=== PATIENT | female | born 1950 | race Caucasian/White ===

== ENCOUNTER 2017-10-13 18:57 | Observation (INO) | payer MEDICARE ==
[~2017-10-13] VITALS: Ht 165.1 cm; Wt 77.3 kg
[2017-10-13 19:00] VITALS: BP 121/61; PULSE 113; RESP 20; TEMP 98.8; O2SAT 92
[2017-10-13] MEDS ORDERED: SODIUM CHLORIDE 0.9% FLUSH 10 ML FLUSH IV FLUSH PRN ×2 (19:30→21:45)
[2017-10-13] MEDS ORDERED: SODIUM CHLORID 0.9% 500 ML INJ 500 ML IV ONE (19:30)
--- NOTE | 2017-10-13 19:35 | PD ---
HPI Chief Complaint: Dizziness Time Seen by Provider: 19:19 Travel History International Travel<30 days: No Contact w/Intl Traveler<30days: No Traveled to known affect area: No History of Present Illness HPI The patient is a 66 year old female who presents to the [facility] emergency department with a history of reportedly having onset of dizziness, lightheaded sensation while I will get a dinner this evening. The patient reports that she could not do anything including talk or stand up. She just had to sit down. The patient was pale-appearing. Ambulance services were called. The patient was noted to have a sinus tachycardia, blood sugar 105. The patient was transported to this facility for evaluation and treatment. The patient on examination is oriented to person, place, however not time. She is oriented to situation and reports that she had a similar episode of what she describes as vertigo a couple months ago. She did describe this to her primary care physician, however no other workup was done. The patient is visiting from [place]. She arrived by plane 3 days ago. She denies drinking any alcohol. The patient arrives slightly tremulous. Otherwise on review of systems, the patient denies having any recent fevers or chills, cough or congestion,neck pain , chest pain, shortness of breath, abdominal pain, vomiting, diarrhea, urinary symptoms, double vision or blurry vision, one-sided weakness, slurred speech, facial droop, or one-sided weakness. The patient reports having generalized weakness this afternoon. [facility] Past Medical History Narrative Medical The patient's past medical history is significant for diabetes mellitus, hypertension, hyperlipidemia. The patient's daughter called in to provide additional history. She reports that she is a nurse. She reports that the patient has a history of depression and anxiety. The patient underwent shock therapy 2 years ago. The patient has had a mild tremor since then. The patient has also had a decline in her mentation since then according to her daughter. The patient has had multiple suicide attempts in the past. The patient has overdosed in the past on Klonopin as well as oxycodone. The patient's monitors her medication intake, however the patient's has other medical problems including blindness and severe COPD on nasal cannula oxygen continuously. The patient's daughter reports that he is traveling with his , however as he is blind he has not been able to travel to the emergency department. He did call the patient's daughter which is how she contacted us. This daughter is Sue. High Cholesterol: Yes Diabetes: Yes Patient Takes Glucophage: No (PRASHANT) Hypertension: Yes Tetanus Vaccination: > 5 Years Past Surgical History Narrative Surgical The patient's past surgical history is significant for bilateral knee replacements, cervical fusion, hysterectomy. Joint Replacement: Yes (BILATER KNEE REPLACEMENT ) Social History Alcohol Use: No (Quit in 1993) Tobacco Use: No Substance Use: No Allergies-Medications (Allergen,Severity, Reaction): Coded Allergies: No Known Allergies (Unverified , 10/13/17) Reported Meds & Prescriptions Reported Meds & Active Scripts Active Active Prescriptions or Reported Medications Unobtainable Review of Systems Except as stated in HPI: all other systems reviewed are Neg General / Constitutional: No: Fever Eyes: No: Visual changes HENT: No: Headaches Cardiovascular: No: Chest Pain or Discomfort Respiratory: No: Shortness of Breath Gastrointestinal: No: Nausea, Vomiting, Diarrhea, Abdominal Pain Genitourinary: No: Dysuria Musculoskeletal: No: Pain Skin: No Rash Neurologic: Positive: Weakness (Generalized weak), Dizziness, Change in Mentation, No: Syncope, Slurred Speech, Sensory Disturbance Psychiatric: No: Depression Endocrine: No: Polydipsia Hematologic/Lymphatic: No: Easy Bruising Physical Exam Narrative General: The patient is a well-developed well-nourished female in no acute distress. Head and Neck exam: Head is normocephalic atraumatic. Eyes: EOMI, pupils are equal round and reactive to light. Nose: Midline septum with pink mucous membranes Mouth: Dentition unremarkable. Moist mucus membranes. Posterior oropharynx is not erythematous. No tonsillar hypertrophy. Uvula midline. Airway patent. Neck: No palpable lymphadenopathy. No nuchal rigidity. No thyromegaly. Cardiovascular: Sinus tachycardia in the 1 teens without murmurs, gallops, or rubs. No pulse deficit to the extremities on simultaneous auscultation and palpation of her radial artery. Lungs: Clear to auscultation bilaterally. No wheezes, rhonchi, or rales. Abdomen: Soft, without tenderness to palpation in all 4 quadrants of the abdomen. No guarding, rebound, or rigidity. Normal bowel sounds are audible. No tenderness on palpation of McBurney's point. Negative Zamarripa sign. Extremities: No clubbing or cyanosis. The patient has trace to 1+ pitting edema bilateral lower extremities. 2+ pulses in all 4 extremities. No calf tenderness on palpation. Back: No costovertebral angle tenderness to palpation. Neurologic Exam: Cranial nerves 2-12 were intact on exam. Strength is 5/5 in all 4 extremities. No sensory deficits noted. Slightly tremulous on examination. The patient is oriented to person, place, however when asked the year she reports that it is 2007 and the month is October. She reports that she is in her 50s, however she is 66. The patient is aware that Suhas Sibley is president. Skin Exam: No rash noted. Intact skin that is warm and dry. Data Data Last Documented VS Vital Signs Date Time Temp Pulse Resp B/P (MAP) Pulse Ox O2 Delivery O2 Flow Rate FiO2 10/13/17 19:00 98.8 113 20 121/61 (81) 92 Orders Orders Electrocardiogram (10/13/17 19:19) Ammonia (10/13/17 19:19) Complete Blood Count With Diff (10/13/17 19:19) Comprehensive Metabolic Panel (10/13/17 19:19) Creatine Kinase (Cpk) (10/13/17 19:19) Prothrombin Time / Inr (Pt) (10/13/17 19:19) Act Partial Throm Time (Ptt) (10/13/17 19:19) Troponin I (10/13/17 19:19) Thyroid Stimulating Hormone (10/13/17 19:19) Urinalysis - C+S If Indicated (10/13/17 19:19) Chest, Single Ap (10/13/17 19:19) Ct Brain W/O Iv Contrast(Rout) (10/13/17 19:19) Blood Glucose (10/13/17 19:19) Ecg Monitoring (10/13/17 19:19) Iv Access Insert/Monitor (10/13/17 19:19) Oximetry (10/13/17 19:19) Sodium Chloride 0.9% Flush (Ns Flush) (10/13/17 19:30) Drug Screen, Random Urine (10/13/17 19:19) Alcohol (Ethanol) (10/13/17 19:19) Sodium Chlorid 0.9% 500 Ml Inj (Ns 500 M (10/13/17 19:30) Ckmb (Isoenzyme) Profile (10/13/17 19:19) B-Type Natriuretic Peptide (10/13/17 19:19) C-Reactive Protein (Crp) (10/13/17 19:19) Lipase (10/13/17 19:19) Magnesium (Mg) (10/13/17 19:19) Lactic Acid Sepsis Protocol (10/13/17 19:19) Orthostatic Vital Signs (10/13/17 19:23) CKMB (10/13/17 19:20) CKMB% (10/13/17 19:20) Salicylates (Aspirin) (10/13/17 20:38) Tylenol (Acetaminophen) (10/13/17 20:38) Admit Order (Ed Use Only) (10/13/17 21:27) Labs Laboratory Tests Test 10/13/17 19:20 10/13/17 19:40 White Blood Count 10.6 TH/MM3 Red Blood Count 4.42 MIL/MM3 Hemoglobin 13.3 GM/DL Hematocrit 38.9 % Mean Corpuscular Volume 88.0 FL Mean Corpuscular Hemoglobin 30.2 PG Mean Corpuscular Hemoglobin Concent 34.3 % Red Cell Distribution Width 13.4 % Platelet Count 340 TH/MM3 Mean Platelet Volume 8.3 FL Neutrophils (%) (Auto) 60.8 % Lymphocytes (%) (Auto) 28.3 % Monocytes (%) (Auto) 8.3 % Eosinophils (%) (Auto) 1.9 % Basophils (%) (Auto) 0.7 % Neutrophils # (Auto) 6.5 TH/MM3 Lymphocytes # (Auto) 3.0 TH/MM3 Monocytes # (Auto) 0.9 TH/MM3 Eosinophils # (Auto) 0.2 TH/MM3 Basophils # (Auto) 0.1 TH/MM3 CBC Comment DIFF FINAL Differential Comment Prothrombin Time 10.7 SEC Prothromb Time International Ratio 1.1 RATIO Activated Partial Thromboplast Time 22.4 SEC Blood Urea Nitrogen 18 MG/DL Creatinine 0.90 MG/DL Random Glucose 110 MG/DL Total Protein 6.8 GM/DL Albumin 4.4 GM/DL Calcium Level 10.4 MG/DL Magnesium Level 1.8 MG/DL Alkaline Phosphatase 41 U/L Aspartate Amino Transf (AST/SGOT) 21 U/L Alanine Aminotransferase (ALT/SGPT) 21 U/L Total Bilirubin 0.3 MG/DL Sodium Level 136 MEQ/L Potassium Level 3.2 MEQ/L Chloride Level 100 MEQ/L Carbon Dioxide Level 27.2 MEQ/L Anion Gap 9 MEQ/L Estimat Glomerular Filtration Rate 62 ML/MIN Ammonia 19 MCMOL/L Total Creatine Kinase 181 U/L Creatine Kinase MB 0.8 NG/ML Troponin I LESS THAN 0.02 NG/ML C-Reactive Protein LESS THAN 0.29 MG/DL B-Type Natriuretic Peptide 12 PG/ML Lipase 183 U/L Thyroid Stimulating Hormone 3rd Gen 1.250 uIU/ML Salicylates Level LESS THAN 1.7 MG/DL Acetaminophen Level LESS THAN 2.0 MCG/ML Ethyl Alcohol Level LESS THAN 3 MG/DL Lactic Acid Level 1.4 mmol/L MDM Medical Decision Making Medical Screen Exam Complete: Yes Emergency Medical Condition: Yes Medical Record Reviewed: Yes Differential Diagnosis Hepatic encephalopathy, versus intracranial mass, versus infectious process such as urinary tract infection, versus pneumonia, versus alcohol intoxication, versus withdrawal syndrome Narrative Course During the course of the patient's emergency department visit, the patient's history, examination, and differential diagnosis were reviewed with the patient. The patient was placed on a hospital monitor with oximetry and frequent blood pressure monitoring. The patient had IV access obtained and blood work sent for analysis. The patient had an EKG done on arrival that shows a sinus tachycardia rate of 115, incomplete right bundle branch block, QRS duration is 94 ms, QTc is [address] segment elevation. The patient was initially provided normal saline at 500 mL bolus. The patient's laboratory studies were reviewed and remarkable for a white count of 10.6, hemoglobin 13.3, platelets 340 with monocytes 8.3, CMP is remarkable for potassium of 3.2, glucose 110, calcium 10.4, alk phos 41, cardiac enzymes within normal limits, C-reactive protein less than 0.29, lipase 183, TSH 1.25, BNP is 12, ammonia level 19, lactic acid 1.4, PT 10.7, PTT 22.4, alcohol level less than 3, acetaminophen less than 2, salicylate less than 1.7. Radiology studies were reviewed and remarkable for a chest x-ray that shows cardiomegaly, trace atelectasis, no other acute abnormality. CT scan of the brain shows no acute abnormality. The patient will be admitted to the hospital for continued observation regarding altered mentation. The patient's results were discussed with the patient, including the plan of care. I explained that further testing and/ or monitoring is indicated based on the patient's history, examination, and/ or laboratory findings. Therefore, I recommended admission for additional evaluation. The patient expressed understanding and was agreeable with this plan. The patient was admitted to the hospital in stable condition and sent to a bed under the care of the [facility] service. Sepsis Criteria SIRS Criteria (2 or more): Heart rate over 90 Physician Communication Physician Communication The patient's case including history, pertinent physical examination findings, and laboratory studies were discussed with Dr. Brito. It was agreed that the patient would be admitted to the [facility] service. Diagnosis Primary Impression: Altered mental status Qualified Codes: R41.0 - Disorientation, unspecified Admitting Information Admitting Physician Requests: Observation Scripts Unable to Obtain Active Prescriptions or Reported Meds Kiana Adhikari MD Oct 13, 2017 19:35
--- NOTE | 2017-10-13 19:40 | RADRPT ---
EXAM DATE/TIME: 10/13/2017 19:31 [facility] COMPARISON: No previous studies available for comparison. INDICATIONS : Dizziness. RADIATION DOSE: 44.32 CTDIvol (mGy) MEDICAL HISTORY : Hypertension. Diabetes mellitus type 2. SURGICAL HISTORY : None. ENCOUNTER: Initial ACUITY: 1 day PAIN SCALE: 0/10 LOCATION: cranial TECHNIQUE: Multiple contiguous axial images were obtained of the head. Using automated exposure control and adj ustment of the mA and/or kV according to patient size, radiation dose was kept as low as reasonably a chievable to obtain optimal diagnostic quality images. DICOM format image data is available electro nically for review and comparison. FINDINGS: CEREBRUM: The ventricles are normal for age. No evidence of midline shift, mass lesion, hemorrhage or acute in farction. No extra-axial fluid collections are seen. POSTERIOR FOSSA: The cerebellum and brainstem are intact. The 4th ventricle is midline. The cerebellopontine angle i s unremarkable. EXTRACRANIAL: The visualized portion of the orbits is intact. SKULL: The calvaria is intact. No evidence of skull fracture. CONCLUSION: 1. No acute intracranial abnormalities. Trace fluid in the right maxillary sinus and sphenoid sinus. Harry Diggs MD on October 13, 2017 at 19:36 Board Certified Radiologist. This report was verified electronically.
--- NOTE | 2017-10-13 19:47 | RADRPT ---
EXAM DATE/TIME: 10/13/2017 19:36 [facility] COMPARISON: No previous studies available for comparison. INDICATIONS : Short of breath. AMS. MEDICAL HISTORY : None. SURGICAL HISTORY : None. ENCOUNTER: Initial ACUITY: 1 day PAIN SCORE: 0/10 LOCATION: Bilateral chest FINDINGS: A single view of the chest demonstrates postoperative right shoulder joint replacement and fusion low er cervical spine. Heart size is enlarged. Mild basilar atelectasis. No effusion. No pneumothorax. CONCLUSION: 1. Cardiomegaly with mild basilar atelectasis. No significant effusion. Harry Diggs MD on October 13, 2017 at 19:45 Board Certified Radiologist. This report was verified electronically.
[2017-10-13 19:52] LABS: AUTOMATED NEUTROPHIL # 6.5 TH/MM3 (1.8-7.7); BASOPHIL # 0.1 TH/MM3 (0-0.2); BASOPHIL % 0.7 % (0.0-2.0); EOSINOPHIL # 0.2 TH/MM3 (0-0.4); EOSINOPHIL % 1.9 % (0.0-4.0); HEMATOCRIT 38.9 % (35.0-46.0); HEMOGLOBIN 13.3 GM/DL (11.6-15.3); LYMPH % 28.3 % (9.0-44.0); MEAN CORPUSCULAR HEMOGLOBIN 30.2 PG (27.0-34.0); MEAN CORPUSCULAR HGB CONC 34.3 % (32.0-36.0); MEAN PLATELET VOLUME 8.3 FL (7.0-11.0); MONO % 8.3 % (0.0-8.0); MONOCYTE # 0.9 TH/MM3 (0-0.9); NEUT % 60.8 % (16.0-70.0); PLATELET COUNT 340 TH/MM3 (150-450); RED BLOOD COUNT 4.42 MIL/MM3 (4.00-5.30); RED CELL DISTRIBUTION WIDTH 13.4 % (11.6-17.2); WHITE BLOOD COUNT 10.6 TH/MM3 (4.0-11.0)
[2017-10-13 20:05] LABS: ALT (GPT) 21 U/L (10-53)
[2017-10-13 20:13] LABS: ALKALINE PHOSPHATASE 41 U/L (45-117); C-REACTIVE PROTEIN LESS THAN 0.29 MG/DL (0.00-0.30); INTERNATIONAL NORMALIZED RATIO 1.1 RATIO; PROTHROMBIN TIME - PATIENT 10.7 SEC (9.8-11.6); TOTAL BILIRUBIN ADULT 0.3 MG/DL (0.2-1.0); TOTAL PROTEIN 6.8 GM/DL (6.4-8.2); TROPONIN I LESS THAN 0.02 NG/ML (0.02-0.05)
[2017-10-13 20:15] LABS: ALBUMIN 4.4 GM/DL (3.4-5.0); AST (GOT) 21 U/L (15-37); BICARBONATE 27.2 MEQ/L (21.0-32.0); BLOOD UREA NITROGEN 18 MG/DL (7-18); CALCIUM 10.4 MG/DL (8.5-10.1); CHLORIDE 100 MEQ/L (98-107); GLOMERULAR FILTRATION RATE 62 ML/MIN (>89); GLUCOSE,RANDOM 110 MG/DL (74-106); MAGNESIUM 1.8 MG/DL (1.5-2.5); SODIUM (NA) 136 MEQ/L (136-145)
[2017-10-13] MEDS ORDERED: SODIUM CHLOR 0.9% 1000 ML INJ 1,000 ML IV SCH (21:41)
--- NOTE | 2017-10-13 21:43 | HHI.HP ---
[facility] No Primary Care Physician Admission Diagnosis AMS Diagnoses: (1) Encephalopathy Diagnosis: Principal (2) Dizziness Diagnosis: Principal (3) Hypokalemia Diagnosis: Principal (4) Dehydration Diagnosis: Principal Travel History International Travel<30 Days: No Contact w/Intl Traveler <30 Da: No Traveled to Known Affected Are: No History of Present Illness This is a 66-year-old female with PMH of HTN, Hyperlipidemia and DM brought to the ER by EMS secondary to dizziness/lightheadedness w/ AMS. Pt visiting from [place] with , states she went out to clam picker dinner and had acute onset of dizziness/lightheadedness and had to sit down on curb. Bystanders called EMS. Denies fall or LOC. States felt legs turn to "Jell-o". On arrival, pt noted to be slightly confused, oriented to person, place but not time. ER physician spoke w/ pt's Daughter in [place] who states pt takes Oxycodone for chronic pain and thinks she may have taken additional doses of pain medication. BP 121/61, HR 113, O2 sat 92% on RA, Afebrile. CBC unremarkable. K+ 3.2. GFR 62. Lactic Acid normal. Calcium 10.4. Troponin negative. INR 1.1. Alcohol negative. Tylenol and salicylate negative. UA and Urine Drug Screen pending. CXR with no acute findings. CT Head negative. Review of Systems Except as stated in HPI: all other systems reviewed are Neg ROS: 14 point review of systems otherwise negative. Past Family Social History Past Medical History PMH: HTN, Hyperlipidemia and DM Past Surgical History PAST SURGICAL HISTORY: Bilateral Knee Replacement, Cervical Fusion, Hysterectomy Allergies: Coded Allergies: No Known Allergies (Unverified , 10/13/17) Family History PAST FAMILY HISTORY: Reviewed. No h/o DM or CAD Social History PAST SOCIAL HISTORY: Negative for alcohol, tobacco or drugs. Physical Exam Vital Signs Vital Signs Date Time Temp Pulse Resp B/P (MAP) Pulse Ox O2 Delivery O2 Flow Rate FiO2 10/13/17 19:00 98.8 113 20 121/61 (81) 92 Physical Exam PE: GENERAL: Middle-aged white female in no acute distress. Mildly confused. Asking same questions. HEENT: PERRLA, EOMI. No scleral icterus or conjunctival pallor. No lid lag or facial droop. CARDIOVASCULAR: Regular rate and rhythm. No obvious murmurs to auscultation. No chest tenderness to palpation. RESPIRATORY: No obvious rhonchi or wheezing. Clear to auscultation. Breath sounds equal bilaterally. GASTROINTESTINAL: Abdomen soft, non-tender, nondistended. BS normal. MUSCULOSKELETAL: Extremities without clubbing, cyanosis, or edema. No obvious deformities. NEUROLOGICAL: Awake, alert and oriented to person/place. Confused, baseline unknown. No focal neurologic deficits. Moving both upper and lower extremities spontaneously. Laboratory Laboratory Tests Test 10/13/17 19:20 10/13/17 19:40 White Blood Count 10.6 Red Blood Count 4.42 Hemoglobin 13.3 Hematocrit 38.9 Mean Corpuscular Volume 88.0 Mean Corpuscular Hemoglobin 30.2 Mean Corpuscular Hemoglobin Concent 34.3 Red Cell Distribution Width 13.4 Platelet Count 340 Mean Platelet Volume 8.3 Neutrophils (%) (Auto) 60.8 Lymphocytes (%) (Auto) 28.3 Monocytes (%) (Auto) 8.3 Eosinophils (%) (Auto) 1.9 Basophils (%) (Auto) 0.7 Neutrophils # (Auto) 6.5 Lymphocytes # (Auto) 3.0 Monocytes # (Auto) 0.9 Eosinophils # (Auto) 0.2 Basophils # (Auto) 0.1 CBC Comment DIFF FINAL Differential Comment Prothrombin Time 10.7 Prothromb Time International Ratio 1.1 Activated Partial Thromboplast Time 22.4 Blood Urea Nitrogen 18 Creatinine 0.90 Random Glucose 110 Total Protein 6.8 Albumin 4.4 Calcium Level 10.4 Magnesium Level 1.8 Alkaline Phosphatase 41 Aspartate Amino Transf (AST/SGOT) 21 Alanine Aminotransferase (ALT/SGPT) 21 Total Bilirubin 0.3 Sodium Level 136 Potassium Level 3.2 Chloride Level 100 Carbon Dioxide Level 27.2 Anion Gap 9 Estimat Glomerular Filtration Rate 62 Ammonia 19 Total Creatine Kinase 181 Creatine Kinase MB 0.8 Troponin I LESS THAN 0.02 C-Reactive Protein LESS THAN 0.29 B-Type Natriuretic Peptide 12 Lipase 183 Thyroid Stimulating Hormone 3rd Gen 1.250 Salicylates Level LESS THAN 1.7 Acetaminophen Level LESS THAN 2.0 Ethyl Alcohol Level LESS THAN 3 Lactic Acid Level 1.4 Result Diagram: 10/13/17191910/13/171919 Caprini VTE Risk Assessment Shunrini VTE Risk Assessment: No/Low Risk (score <= 1) Shunrini Risk Assessment Model Point Value = 1 Point Value = 2 Point Value = 3 Point Value = 5 Age 41-60 Minor surgery BMI > 25 kg/m2 Swollen legs Varicose veins or History of unexplained or recurrent spontaneous Oral contraceptives or hormone replacement Sepsis (< 1 month) Serious lung disease, including pneumonia (< 1 month) Abnormal pulmonary function Acute myocardial infarction Congestive heart failure (< 1 month) History of inflammatory bowel disease Medical patient at bed rest Age 61-74 Arthroscopic surgery Major open surgery (> 45 min) Laparoscopic surgery (> 45 min) Malignancy Confined to bed (> 72 hours) Immobilizing plaster cast Central venous access Age >= 75 History of VTE Family history of VTE Factor V Leiden Prothrombin [id number] Lupus anticoagulant Anticardiolipin antibodies Elevated serum homocysteine Heparin-induced thrombocytopenia Other congenital or acquired thrombophilia Stroke (< 1 month) Elective arthroplasty Hip, pelvis, or leg fracture Acute spinal cord injury (< 1 month) Prophylaxis Regimen Total Risk Factor Score Risk Level Prophylaxis Regimen 0-1 Low Early ambulation 2 Moderate Order ONE of the following: *Sequential Compression Device (SCD) *Heparin 5000 units SQ BID 3-4 Higher Order ONE of the following medications: *Heparin 5000 units SQ TID *Enoxaparin/Lovenox 40 mg SQ daily (WT < 150 kg, CrCl > 30 mL/min) *Enoxaparin/Lovenox 30 mg SQ daily (WT < 150 kg, CrCl > 10-29 mL/min) *Enoxaparin/Lovenox 30 mg SQ BID (WT < 150 kg, CrCl > 30 mL/min) AND/OR *Sequential Compression Device (SCD) 5 or more Highest Order ONE of the following medications: *Heparin 5000 units SQ TID (Preferred with Epidurals) *Enoxaparin/Lovenox 40 mg SQ daily (WT < 150 kg, CrCl > 30 mL/min) *Enoxaparin/Lovenox 30 mg SQ daily (WT < 150 kg, CrCl > 10-29 mL/min) *Enoxaparin/Lovenox 30 mg SQ BID (WT < 150 kg, CrCl > 30 mL/min) AND *Sequential Compression Device (SCD) Assessment and Plan Problem List: (1) Encephalopathy ICD Code: G93.40 - Encephalopathy, unspecified (2) Dizziness ICD Code: R42 - Dizziness and giddiness (3) Dehydration ICD Code: E86.0 - Dehydration (4) Hypokalemia ICD Code: E87.6 - Hypokalemia Assessment and Plan A/P: 1. Encephalopathy: noted to be confused on arrival, oriented to person/place, not time, baseline unknown. CT Head w/ no acute findings, images reviewed by me. Daughter reports h/o chronic opioid use, believes pt may have taken additional doses, AMS possibly medication related. Neuro checks q4h. Follow up Urine Drug Screen 2. Dizziness: likely dehydration compounded by medication effects. IVF for hydration, repeat labs in am. PT for eval/tx. 3. Dehydration: GFR 62, check U/a to eval for possible underlying UTI. IVF for hydration. 4. Hypokalemia: K+ 3.2, will give 40mEq now, repeat labs in am, replace as needed. 5. DVT Prophylaxis: SCD/Teds. 6. Social work for d/c planning as needed. 7. Case discussed w/ ER physician at length, labs/records/imaging reviewed by me. Treva Brito MD Oct 13, 2017 21:43
[2017-10-13] MEDS ORDERED: ACETAMINOPHEN 325 MG TAB PO PRN (21:45)
[2017-10-13] MEDS ORDERED: POTASSIUM CHLORIDE 20 MEQ CONTROLLED RELEASE TAB PO ONE (21:45)
[2017-10-13] MEDS ORDERED: GLUCAGON 1 MG/ML VIAL OTHER PRN (21:45)
[2017-10-13] MEDS ORDERED: DEXTROSE 50% IN WATER 50 ML VIAL(D50) IV PUSH PRN (21:45)
[2017-10-13] MEDS ORDERED: ONDANSETRON HCL 4 MG/2 ML VIAL IVP PRN (21:45)
[2017-10-13 22:00] VITALS: BP 119/58; PULSE 94; RESP 18; O2SAT 97
[2017-10-13 23:05] VITALS: BP 122/58; PULSE 94; RESP 18; TEMP 97.9; O2SAT 93
[2017-10-14] VITALS (8 sets, daily range): BP systolic 121–150; BP diastolic 60–81; PULSE 92–104; RESP 16–18; TEMP 97.8–98.7; O2SAT 94–98
[2017-10-14 06:08] LABS: AUTOMATED NEUTROPHIL # 4.4 TH/MM3 (1.8-7.7); BASOPHIL # 0.1 TH/MM3 (0-0.2); BASOPHIL % 0.8 % (0.0-2.0); EOSINOPHIL # 0.2 TH/MM3 (0-0.4); EOSINOPHIL % 2.9 % (0.0-4.0); HEMATOCRIT 36.5 % (35.0-46.0); HEMOGLOBIN 12.3 GM/DL (11.6-15.3); LYMPH % 34.2 % (9.0-44.0); LYMPHOCYTE # 2.9 TH/MM3 (1.0-4.8); MEAN CELL VOLUME 89.3 FL (80.0-100.0); MEAN CORPUSCULAR HEMOGLOBIN 30.2 PG (27.0-34.0); MEAN CORPUSCULAR HGB CONC 33.8 % (32.0-36.0); MONO % 10.1 % (0.0-8.0); MONOCYTE # 0.8 TH/MM3 (0-0.9); PLATELET COUNT 321 TH/MM3 (150-450); RED BLOOD COUNT 4.09 MIL/MM3 (4.00-5.30); RED CELL DISTRIBUTION WIDTH 13.5 % (11.6-17.2); WHITE BLOOD COUNT 8.4 TH/MM3 (4.0-11.0)
[2017-10-14 07:00] LABS: ALBUMIN 3.7 GM/DL (3.4-5.0); ALKALINE PHOSPHATASE 36 U/L (45-117); ALT (GPT) 18 U/L (10-53); AST (GOT) 18 U/L (15-37); BICARBONATE 30.8 MEQ/L (21.0-32.0); BLOOD UREA NITROGEN 19 MG/DL (7-18); CALCIUM 9.2 MG/DL (8.5-10.1); CHLORIDE 105 MEQ/L (98-107); CREATININE 1.15 MG/DL (0.50-1.00); GLOMERULAR FILTRATION RATE 47 ML/MIN (>89); GLUCOSE,RANDOM 119 MG/DL (74-106); SODIUM (NA) 142 MEQ/L (136-145); TOTAL BILIRUBIN ADULT 0.2 MG/DL (0.2-1.0); TOTAL PROTEIN 6.3 GM/DL (6.4-8.2)
[2017-10-14] MEDS: INSULIN ASPART SUPPLEMENTAL SCALE SQ SCH ×4 (08:00→21:00)
[2017-10-14] MEDS: DOCUSATE SODIUM 50 MG/SENNA 8.6 MG TAB PO SCH ×2 (08:07→21:21)
[2017-10-14] MEDS: SODIUM CHLORIDE 0.9% FLUSH 10 ML FLUSH IV FLUSH SCH ×2 (08:07→21:00)
[2017-10-14] MEDS: NS + KCL 20 MEQ INJ 1,000 ML IV SCH (11:05)
--- NOTE | 2017-10-14 11:10 | HHI.PR ---
Subjective Remarks Follow up weakness, confusion. Patient states that she feels much better today and wants to go home. States that she is no longer confused and that her legs feel much stronger. Objective Vitals Vital Signs Date Time Temp Pulse Resp B/P (MAP) Pulse Ox O2 Delivery O2 Flow Rate FiO2 10/14/17 10:02 104 129/81 (97) 10/14/17 10:01 101 150/70 (96) 10/14/17 10:00 97 127/76 (93) 10/14/17 08:21 98.5 98 18 121/62 (81) 96 10/14/17 03:12 97.8 92 18 125/62 (83) 94 10/13/17 23:05 97.9 94 18 122/58 (79) 93 10/13/17 22:05 10/13/17 22:00 94 18 119/58 (78) 97 Room Air 10/13/17 19:00 98.8 113 20 121/61 (81) 92 Result Diagram: 10/14/17 0529 10/14/17 0529 Imaging Last Impressions Head CT 10/13/171918 Signed Impressions: Service Date/Time: Friday, October 13, 2017 19:31 - CONCLUSION: 1. No acute intracranial abnormalities. Trace fluid in the right maxillary sinus and sphenoid sinus. Harry Diggs MD Chest X-Ray 10/13/171918 Signed Impressions: Service Date/Time: Friday, October 13, 2017 19:36 - CONCLUSION: 1. Cardiomegaly with mild basilar atelectasis. No significant effusion. Harry Diggs MD Objective Remarks General: Obese female in no acute distress. Heart: Regular rate and rhythm. No murmur. Lungs: Clear to auscultation bilaterally. No wheezes, rales, or rhonchi. Breathing is nonlabored. Abdomen: Soft, nontender, nondistended. Extremities: No lower extremity edema. Psych: Alert and oriented. Answers questions appropriately. Procedures None Urinary Catheter: No Vascular Central Line Catheter: No A/P Problem List: (1) Encephalopathy ICD Code: G93.40 - Encephalopathy, unspecified (2) Dizziness ICD Code: R42 - Dizziness and giddiness (3) Dehydration ICD Code: E86.0 - Dehydration (4) Hypokalemia ICD Code: E87.6 - Hypokalemia Assessment and Plan 1. Encephalopathy: Patient presented with confusion. Mental status has improved. Now apparently at her baseline. Family is at bedside. There is some question whether patient may have taken additional doses of pain medication precipitating this episode. 2. Dizziness: Likely secondary to dehydration, medication effects. Improving. 3. Dehydration: BUN/creatinine increasing. Continue IV fluids. 4. Hypokalemia: Improved with supplementation. 5. DVT prophylaxis: SCDs/JENNI valdez. Discharge Planning Pending improvement in BUN/creatinine. Duong Ratliff MD Oct 14, 2017 11:10
[2017-10-14] MEDS ORDERED: HYDR25TA5 PO (11:37)
[2017-10-14] MEDS ORDERED: LISI-519 PO (11:38)
[2017-10-14] MEDS ORDERED: VENL75XR PO (11:40)
[2017-10-14] MEDS ORDERED: METF500 PO (11:44)
[2017-10-14] MEDS ORDERED: SERO300T PO (11:46)
[2017-10-14] MEDS ORDERED: NEUR600T PO (11:47)
[2017-10-14] MEDS ORDERED: BUPR150XL PO (11:53)
[2017-10-14] MEDS ORDERED: CLON.5 PO (11:54)
--- NOTE | 2017-10-14 15:39 | EKG ---
Date Performed: 10/13/2017 Time Performed: 19:03:53 PTAGE: 66 years EKG: SINUS TACHYCARDIA INCOMPLETE RIGHT BUNDLE BRANCH BLOCK POSSIBLE RIGHT VENTRICULAR HYPERTROP HY Poor R wave progression Clinical correlation is recommended ABNORMAL ECG NO PREVIOUS TRACING DOCTOR: Suhas Agustin Interpretating Date/Time 10/14/2017 15:39:05
[2017-10-14] MEDS: buPROPion HCL 150 MG SUSTAINED RELEASE TAB PO SCH (16:03)
[2017-10-14 16:07] LABS: BACTERIA, URINE MOD /hpf; BILIRUBIN, URINE NEG (NEG); BLOOD, URINE NEG (NEG); GLUCOSE,URINE NEG (NEG); KETONE, URINE NEG (NEG); NITRITE,URINE NEG (NEG); SQUAMOUS EPITHELIAL CELL URINE 2 /hpf (0-5); URINE COLOR LIGHT-YELLOW (YELLW/STRAW); URINE LEUKOCYTE ESTERASE LARGE (NEG)
[2017-10-14] MEDS: CEPHALEXIN MONOHYDRATE 500 MG CAP PO SCH ×2 (17:10→21:21)
[2017-10-14] MEDS ORDERED: QUEtiapine FUMARATE 300 MG TAB PO SCH (21:00)
[2017-10-14] MEDS: GABAPENTIN 300 MG CAP PO SCH (21:21)
[2017-10-15] MEDS: NS + KCL 20 MEQ INJ 1,000 ML IV SCH (00:45)
[2017-10-15 04:45] VITALS: BP 112/56; PULSE 90; RESP 14; TEMP 96.8; O2SAT 98
[2017-10-15] MEDS: CEPHALEXIN MONOHYDRATE 500 MG CAP PO SCH (05:46)
[2017-10-15 06:08] LABS: BICARBONATE 27.5 MEQ/L (21.0-32.0); CALCIUM 8.6 MG/DL (8.5-10.1); CREATININE 0.64 MG/DL (0.50-1.00)
[2017-10-15] MEDS: buPROPion HCL 150 MG SUSTAINED RELEASE TAB PO SCH (07:56)
[2017-10-15] MEDS: GABAPENTIN 300 MG CAP PO SCH (07:56)
[2017-10-15] MEDS: DOCUSATE SODIUM 50 MG/SENNA 8.6 MG TAB PO SCH (07:56)
[2017-10-15] MEDS: SODIUM CHLORIDE 0.9% FLUSH 10 ML FLUSH IV FLUSH SCH (07:57)
[2017-10-15] MEDS: INSULIN ASPART SUPPLEMENTAL SCALE SQ SCH ×2 (08:00→12:00)
--- NOTE | 2017-10-15 08:20 | PD.CONS ---
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 states she felt lightheaded while standing, didn't feel right, legs felt like "jelly'. she sat down and felt better. hr >100 in er and with evac. noted to be dehydrated with prerenal azotemia. ER physician spoke w/ pt's Daughter in [place] who states pt takes Oxycodone for chronic pain and thinks she may have taken additional doses of pain medication. BP 121/61, HR 113 CBC unremarkable. Alcohol negative. uds negative. glucose 110. CT Head negative. no hx of tia/stroke/sz. she states her bp has been running lower to the point she has stopped taking her bp meds. feels fine this am. no dickens. no focal weakness. no cp, or dyspnea. Review of Systems Except as stated in HPI: all other systems reviewed are Neg Past Family Social History Past Medical History HTN, Hyperlipidemia and DM Past Surgical History Bilateral Knee Replacement, Cervical Fusion, Hysterectomy Allergies: Coded Allergies: No Known Allergies (Unverified , 10/13/17) Family History No h/o DM or CAD Social History lives with spouse. retired rn. Negative for alcohol, tobacco or drugs. Review of Systems All other ROS: ROS reviewed as documented in chart Past Family Social History Allergies: Coded Allergies: No Known Allergies (Unverified , 10/13/17) Active Ordered Medications Current Medications Medications (Trade) Dose Ordered Sig/Darrius Route Start Time Stop Time Status Last Admin (NS Flush) 2 ml UNSCH PRN IV FLUSH 10/13/17 21:45 (NS Flush) 2 ml BID IV FLUSH 10/14/17 09:00 10/15/17 07:57 (Zofran Inj) 4 mg Q6H PRN IVP 10/13/17 21:45 (Tylenol) 650 mg Q6H PRN PO 10/13/17 21:45 (Ana Rosa-Colace) 1 tab BID PO 10/14/17 09:00 10/15/17 07:56 (D50w (Vial) Inj) 50 ml UNSCH PRN IV PUSH 10/13/17 21:45 (Glucagon Inj) 1 mg UNSCH PRN OTHER 10/13/17 21:45 (NovoLOG SUPPLEMENTAL SCALE) 1 ACHS SLIDING SCALE SQ 10/14/17 08:00 Potassium Chloride/Sodium Chloride 1,000 ml @ 100 mls/hr Q10H IV 10/14/17 10:45 10/15/17 00:45 (Wellbutrin Sr) 150 mg DAILY PO 10/14/17 16:00 10/15/17 07:56 (Neurontin) 600 mg BID PO 10/14/17 21:00 10/15/17 07:56 (Hydrodiuril) 25 mg DAILY PO 10/15/17 09:00 10/15/17 07:56 (Prinivil) 5 mg DAILY PO 10/15/17 09:00 10/15/17 07:56 (SEROquel) 300 mg HS PO 10/14/17 21:00 10/14/17 21:21 (Effexor Xr) 75 mg DAILY PO 10/15/17 09:00 10/15/17 07:56 (Keflex) 500 mg Q8HR PO 10/14/17 16:30 10/17/17 16:29 10/15/17 05:46 Exam I&O / VS Vital Signs Date Time Temp Pulse Resp B/P (MAP) Pulse Ox O2 Delivery O2 Flow Rate FiO2 10/15/17 04:45 96.8 90 14 112/56 (74) 98 10/14/17 20:08 98.7 94 16 123/79 (94) 98 10/14/17 16:08 98.4 95 16 128/67 (87) 98 10/14/17 13:15 98.5 96 18 132/60 (84) 95 10/14/17 10:02 104 129/81 (97) 10/14/17 10:01 101 150/70 (96) 10/14/17 10:00 97 127/76 (93) 10/14/17 08:21 98.5 98 18 121/62 (81) 96 General: Alert and Oriented, No acute distress Eye: EOMI Respiratory: Non-labored respirations Musculoskeletal: ROM Neurologic: Alert, Oriented, Normal sensory, Normal motor, No focal defects, CN II-XII intact, Normal DTR's Psychiatric: Cooperative, Appropriate mood & affect, Normal judgement, Non- suicidal Review/Management Diagnosis/Plan: (1) Pre-syncope ICD Codes: R55 - Syncope and collapse Status: Acute Plan: etiology: dehydration? vasovagal? tachy with 2/2 cerebral hypoperfusion elevated hr, increased bun/cr ratio recs f/u cta brain/carotids, eeg orthostatics hydration consider cardio eval; in vs outpatient when she gets back home d/c planning if above nml no driving [place] (2) Dehydration ICD Codes: E86.0 - Dehydration Status: Acute Ulises Meyer MD Oct 15, 2017 08:20
[2017-10-15 08:52] VITALS: BP 120/65; PULSE 94; RESP 18; TEMP 98.2; O2SAT 95
[2017-10-15] MEDS ORDERED: LISINOPRIL 5 MG TAB PO SCH (09:00)
[2017-10-15] MEDS ORDERED: HYDROCHLOROTHIAZIDE 25 MG TAB PO SCH (09:00)
[2017-10-15] MEDS ORDERED: VENLAFAXINE HCL XR 75 MG CAP PO SCH (09:00)
[2017-10-15] MEDS ORDERED: IOHEXOL 350 MG/ML 10 ML VIAL (for RAD DIAG) IVCONTRAST ONE (10:26)
--- NOTE | 2017-10-15 11:25 | RADRPT ---
EXAM DATE/TIME: 10/15/2017 10:20 [facility] COMPARISON: No previous studies available for comparison. INDICATIONS : Dizziness. Evaluate for occlusion. IV CONTRAST: 75 cc Omnipaque 350 (iohexol) IV ; Cumulative dose for multiple exams. RADIATION DOSE: 28.80 CTDIvol (mGy) ; Combined studies MEDICAL HISTORY : Diabetes mellitus type 2. Hypertension. SURGICAL HISTORY : Fusion, cervical. ENCOUNTER: Initial ACUITY: 2 days PAIN SCALE: 0/10 LOCATION: cranial TECHNIQUE: Volumetric scanning was performed using a multi-row detector CT scanner. The data was post processed with a variety of visualization algorithms including full volume maximum intensity projection, multi -planar sliding thin slab reformation, curved planar reformation, and surface rendering techniques. Using automated exposure control and adjustment of the mA and/or kV according to patient size, radiat ion dose was kept as low as reasonably achievable to obtain optimal diagnostic quality images. DICO M format image data is available electronically for review and comparison. FINDINGS: There is excellent visualization of the major intracranial arteries out to the second-order branch ve ssels. There is no evidence for aneurysm, vessel truncation or stenosis, and no evidence for vascula r malformation. Hypoplastic right A1 segment. Into communicating artery with the right anterior sagittal artery suppl ied by the left anterior circulation. Left-sided posterior communicating artery. Persistent cir culation of the right posterior cerebral artery. CONCLUSION: 1. No large vessel stenosis or occlusion. 2. Normal variants as described above. Carl Castillo MD on October 15, 2017 at 11:21 Board Certified Radiologist. This report was verified electronically.
--- NOTE | 2017-10-15 11:28 | RADRPT ---
EXAM DATE/TIME: 10/15/2017 10:20 [facility] COMPARISON: No previous studies available for comparison. INDICATIONS : Dizziness. Evaluate for occlusion. IV CONTRAST: 75 cc Omnipaque 350 (iohexol) IV ; Cumulative dose for multiple exams. RADIATION DOSE: 28.80 CTDIvol (mGy) ; Combined studies MEDICAL HISTORY : Diabetes mellitus type 2. Hypertension. SURGICAL HISTORY : Fusion, cervical. ENCOUNTER: Initial ACUITY: 2 days PAIN SCALE: 0/10 LOCATION: neck Elevated flow velocities and ICA/CCA ratios have been found to correlate with increased degrees of vessel stenosis, calculated as percentage of diameter relative to a normal segment of distal ICA/CCA. TECHNIQUE: Volumetric scanning was performed using a multirow detector CT scanner. The data was post processed with a variety of visualization algorithms including full-volume maximum intensity projection, multip lanar sliding thin-slab reformation, curved-planar reformation, and surface-rendering techniques. Us ing automated exposure control and adjustment of the mA and/or kV according to patient size, radiatio n dose was kept as low as reasonably achievable to obtain optimal diagnostic quality images. DICOM f ormat image data is available electronically for review and comparison. FINDINGS: AORTIC ARCH: There is a three-vessel origin of the great vessels from the aorta. No evidence of ostial narrowing. RIGHT CAROTID: The common carotid artery is intact. The carotid bulb has a normal configuration without ulceration o r narrowing. The internal carotid artery lumen is smooth without stenosis. The external carotid barrington ry is intact. LEFT CAROTID: The common carotid artery is intact. The carotid bulb has a normal configuration without ulceration or narrowing. The internal carotid artery lumen is smooth without stenosis. The external carotid ar jennifer is intact. VERTEBRALS: The vertebral arteries have a symmetric diameter. No stenotic lesions are seen. CONCLUSION: 1. No significant carotid stenosis. No thrombus or aneurysm. Carl Castillo MD on October 15, 2017 at 11:24 Board Certified Radiologist. This report was verified electronically.
[2017-10-15 13:07] VITALS: BP_SYST 116; BP_SYST 125; BP_SYST 134; BP_DIAS 64; BP_DIAS 66
[2017-10-15] MEDS ORDERED: CEPH500C PO (13:12)
--- NOTE | 2017-10-15 13:15 | HHI.DCPOC ---
Discharge Care Plan Diagnosis: (1) Pre-syncope (2) UTI (urinary tract infection) (3) Dehydration (4) Dizziness Goals to Promote Your Health * To prevent worsening of your condition and complications * To maintain your health at the optimal level Directions to Meet Your Goals Take your medications as prescribed Follow your dietary instruction Follow activity as directed Keep your appointments as scheduled Take your immunizations and boosters as scheduled If your symptoms worsen call your PCP, if no PCP go to Urgent Care Center or Emergency Room Smoking is Dangerous to Your Health. Avoid second hand smoke Call the 24-hour hour crisis hotline for domestic abuse at Flaco Lopez MD Oct 15, 2017 13:15
--- NOTE | 2017-10-15 13:21 | HHI.DS ---
Discharge Summary Admission Date Oct 13, 2017 at 21:29 Discharge Date: Oct 15, 2017 Admitting Diagnosis AMS (1) Encephalopathy ICD Code: G93.40 - Encephalopathy, unspecified (2) Dizziness ICD Code: R42 - Dizziness and giddiness (3) Dehydration ICD Code: E86.0 - Dehydration Status: Acute (4) Hypokalemia ICD Code: E87.6 - Hypokalemia Procedures None Brief History - From Admission This is a 66-year-old female with PMH of HTN, Hyperlipidemia and DM brought to the ER by EMS secondary to dizziness/lightheadedness w/ AMS. [place] with , states she went out to machine pecan picker dinner and had acute onset of dizziness/lightheadedness and had to sit down on curb. Bystanders called EMS. Denies fall or LOC. States felt legs turn to "Jell-o". On arrival, pt noted to be slightly confused, oriented to person, place but not time. ER physician spoke w/ pt's Daughter in [place] who states pt takes Oxycodone for chronic pain and thinks she may have taken additional doses of pain medication. BP 121/61, HR 113, O2 sat 92% on RA, Afebrile. CBC unremarkable. K+ 3.2. GFR 62. Lactic Acid normal. Calcium 10.4. Troponin negative. INR 1.1. Alcohol negative. Tylenol and salicylate negative. UA and Urine Drug Screen pending. CXR with no acute findings. CT Head negative. CBC/BMP: 10/14/17 0529 10/15/17 0513 Significant Findings Laboratory Tests Test 10/13/17 19:20 10/13/17 19:40 10/14/17 05:29 10/14/17 15:15 Monocytes (%) (Auto) 8.3 % (0.0-8.0) 10.1 % (0.0-8.0) Activated Partial Thromboplast Time 22.4 SEC (24.3-30.1) Random Glucose 110 MG/DL (74-106) 119 MG/DL (74-106) Calcium Level 10.4 MG/DL (8.5-10.1) Alkaline Phosphatase 41 U/L (45-117) 36 U/L (45-117) Potassium Level 3.2 MEQ/L (3.5-5.1) Estimat Glomerular Filtration Rate 62 ML/MIN (>89) 47 ML/MIN (>89) Troponin I LESS THAN 0.02 NG/ML Salicylates Level LESS THAN 1.7 MG/DL Acetaminophen Level LESS THAN 2.0 MCG/ML Blood Urea Nitrogen 19 MG/DL (7-18) Creatinine 1.15 MG/DL (0.50-1.00) Total Protein 6.3 GM/DL (6.4-8.2) Urine Leukocyte Esterase LARGE (NEG) Urine Bacteria MOD /hpf (NONE) Test 10/15/17 05:13 Random Glucose 113 MG/DL (74-106) Chloride Level 110 MEQ/L (98-107) Imaging Last Impressions Neck CTA 10/15/17 0000 Signed Impressions: Service Date/Time: Sunday, October 15, 2017 10:20 - CONCLUSION: 1. No significant carotid stenosis. No thrombus or aneurysm. Carl Castillo MD Head CTA 10/15/17 0000 Signed Impressions: Service Date/Time: Sunday, October 15, 2017 10:20 - CONCLUSION: 1. No large vessel stenosis or occlusion. 2. Normal variants as described above. Carl Castillo MD Head CT 10/13/171918 Signed Impressions: Service Date/Time: Friday, October 13, 2017 19:31 - CONCLUSION: 1. No acute intracranial abnormalities. Trace fluid in the right maxillary sinus and sphenoid sinus. Harry Diggs MD Chest X-Ray 10/13/171918 Signed Impressions: Service Date/Time: Friday, October 13, 2017 19:36 - CONCLUSION: 1. Cardiomegaly with mild basilar atelectasis. No significant effusion. Harry Diggs MD PE at Discharge General: Obese female in no acute distress. Heart: Regular rate and rhythm. No murmur. Lungs: Clear to auscultation bilaterally. No wheezes, rales, or rhonchi. Breathing is nonlabored. Abdomen: Soft, nontender, nondistended. Extremities: No lower extremity edema. Psych: Alert and oriented. Answers questions appropriately. Pt update on day of discharge Patient reports she is feeling great. She wants to go home. [place] Hospital Course 66-year-old female presented to the hospital with complaint of confusion. Patient was encephalopathic. On reviewing her medication list, she is on many sedating medication when combined could cause her symptoms. Patient was observed and was evaluated by neurology. Imaging and EEG were unremarkable. Her mental status returned to baseline. She also presented with dizziness and dehydration. She appeared dehydrated based on lobs and was given IV fluid. She was treated with antibiotics and will continue the course of treatment with oral antibiotics. Patient's symptoms completely resolved and she was deemed stable for discharge home to follow up outpatient. The patient also has a evidence of UTI. Pt Condition on Discharge: Good Discharge Disposition: Discharge Home Discharge Time: <= 30 minutes Discharge Instructions DIET: Follow Instructions for: Heart Healthy Diet Activities you can perform: See Additionl Instruction Other Activity Instructions: No driving until cleared by your PCP. Follow up with PCP and recommend outpatient evaluation by Cardiology. Follow up Referrals: PCP Follow-up - 1 Week New Medications: Cephalexin (Cephalexin) 500 Mg Cap 500 MG PO Q8HR, #6 CAP Continued Medications: Bupropion HCl ER 24 HR (Wellbutrin Xl 24 HR) 150 Mg Tab 150 MG PO DAILY for Control Depression, TAB 0 Refills Clonazepam (Klonopin) 0.5 Mg Tab 0.5 MG PO TID, #90 TAB 0 Refills Gabapentin (Neurontin) 600 Mg Tab 600 MG PO BID, #60 TAB 0 Refills Hydrochlorothiazide (Hydrochlorothiazide) 25 Mg Tab 25 MG PO DAILY, #30 TAB 0 Refills Lisinopril (Lisinopril) 5 Mg Tab 5 MG PO DAILY for Blood Pressure Management, #30 TAB 0 Refills Metformin (Glucophage) 500 Mg Tab 500 MG PO BIDPC for Blood Sugar Management, #60 TAB 0 Refills Quetiapine (Seroquel) 300 Mg Tab 150 MG PO HS, #30 TAB 0 Refills Venlafaxine ER 24 HR (Effexor XR 24 HR) 75 Mg Cap 75 MG PO DAILY, #30 CAP 0 Refills Flaco Lopez MD Oct 15, 2017 13:21
--- NOTE | 2017-10-15 14:17 | MG ---
cc: Avis Colorado MD EEG# [id number] DATE OF : 1950 REFERRING PHYSICIAN: Dr. Meyer In room G74 with photic stimulation, awake study, CT no acute process. Admitted with new onset dizziness. On lisinopril, Effexor, gabapentin, Seroquel, Keflex, Wellbutrin. DESCRIPTION OF RECORD: The patient has a background rhythm of 8, 8-1/2 hertz, 20-40 microvolts. A lot of eye movement artifact. EKG looks sinus. Photic stimulation does elicit a posterior driving response. There are no epileptiform features. IMPRESSION: Overall normal-appearing EEG without any epileptiform features in this one recording. Clinical correlation. Avis Colorado MD DF/TL/ , 01:20 PM , 02:00 PM
== END 2017-10-15 14:35 | disposition home or self-care (01) ==
LOC: NEPE 18:57 → NEDA 21:29 → NEPGCP 22:21
PROVIDERS: ADMIT Family Medicine; ATTEND Family Medicine
DX: G93.40 Encephalopathy, unspecified (principal); R42 Dizziness and giddiness; E86.0 Dehydration; E87.6 Hypokalemia; G89.29 Other chronic pain; N39.0 Urinary tract infection, site not specified; R55 Syncope and collapse; R06.02 Shortness of breath; R60.0 Localized edema; R00.0 Tachycardia, unspecified; R25.1 Tremor, unspecified; I45.10 Unspecified right bundle-branch block; R94.31 Abnormal electrocardiogram [ECG] [EKG]; I11.9 Hypertensive heart disease without heart failure; E78.00 Pure hypercholesterolemia, unspecified; E11.9 Type 2 diabetes mellitus without complications; F32.9 Major depressive disorder, single episode, unspecified; F41.9 Anxiety disorder, unspecified; Z96.653 Presence of artificial knee joint, bilateral
CPT/HCPCS: 70450; 70496; 70498; 71045; 80048; 80053; 80307; 81001; 82140; 82550; 82552; 82948; 83605; 83690; 83735; 83880; 84443; 84484; 85025; 85610; 85730; 86140; 86403; 87077; 87086; 87186; 93005; 95819; 96365; 96366; 97161; 99285; G0378; G8987; G8988; G8989; J3480; J7040; Q9967